=== PATIENT | female | born 1965 | race Caucasian/White ===

== ENCOUNTER → 2016-08-16 | Outpatient (CLI) | payer BC | END | disposition home or self-care (01) | LOC: PTH.S 08:27 | DX: Z09 Encounter for follow-up examination after completed treatment for conditions other than malignant neoplasm (principal); K86.89 Other specified diseases of pancreas; E07.89 Other specified disorders of thyroid; E04.2 Nontoxic multinodular goiter; Z85.820 Personal history of malignant melanoma of skin ==